=== PATIENT | female | born 1990 | race African-American/Black ===

== ENCOUNTER 2018-11-30 18:26 | Emergency (ER) | payer SELFPAY ==
[~2018-11-30] VITALS: Ht 185.4 cm; Wt 108.9 kg
[2018-11-30] MEDS ORDERED: NKM (18:36)
[2018-11-30 19:10] VITALS: BP 116/72
--- NOTE | 2018-11-30 19:12 | NUR ---
ED Nurse Note:pt. came with c/o cough and flu like symptoms for 5 days
--- NOTE | 2018-11-30 19:29 | Emergency Room Report ---
History of Present Illness General Chief Complaint: Flu Like Symptoms Source: Patient Present Illness HPI 27-year-old female presents to the emergency department complaining of persistent dry cough 5 days. Patient reports that she has taken Tessalon Perles and qron-fik-mthmeod cough and cold medications with no relief. Patient states that this is the second time she is being evaluated for her symptoms. painful cough that is 8/10 in severity. Patient denies fevers and chills she reports coughing is worse at night and is causing her to have difficulty sleeping. Patient states she is up-to-date with all her vaccinations including this years flu vaccination. Patient denies ill contacts or travel. She denies history of asthma, COPD or tobacco use/smoking. Denies sore throat, ear pain, high fevers, lethargy, neck pain/stiffness, irritability, photophobia dehydration, N/V/D. Denies Cp, Palpitations, LOC, AMS, seizures, paresthesias, or changes in Hearing or vision, no Sudden severe DUTTON. Denies hx of smoking, asthma or COPD. Allergies: Coded Allergies: No Known Allergies (Unverified , 11/30/18) Patient History Past Medical History: see triage record Past Surgical History: none Pertinent Family History: none Last Menstrual Period: currently on it Now: No : 0 Para: 0 Reviewed Nursing Documentation: PMH: Agreed; PSxH: Agreed Nursing Documentation-PMH Past Medical History: No Stated History Review of Systems All Other Systems: negative except mentioned in HPI Physical Exam Vital Signs Date Time Temp Pulse Resp B/P (MAP) Pulse Ox O2 Delivery O2 Flow Rate FiO2 11/30/18 18:32 98.2 76 18 116/72 97 Room Air Sp02 EP Interpretation: reviewed, normal General Appearance: no apparent distress, alert, GCS 15, non-toxic Head: normocephalic, atraumatic Eyes: bilateral eye normal inspection, bilateral eye PERRL ENT: hearing grossly normal, normal pharynx, normal voice Neck: full range of motion, no meningismus Respiratory: chest non-tender, lungs clear, normal breath sounds, no rhonchi, no respiratory distress, no accessory muscle use, speaking full sentences, wheezing - expiratory Cardiovascular #1: regular rate, rhythm Musculoskeletal: back normal, gait/station normal, normal range of motion, non- tender Neurologic: alert, oriented x3, responsive, motor strength/tone normal, sensory intact, speech normal, grossly normal Psychiatric: judgement/insight normal Skin: normal color, no rash, warm/dry, well hydrated Lymphatic: no adenopathy Medical Decision Making PA Attestation Dr. gandara is my supervising Physician whom patient management has been discussed with. Diagnostic Impression: Primary Impression: Bronchitis ER Course 27-year-old female presents to the emergency department complaining of persistent dry cough 5 days. Patient reports that she has taken Tessalon Perles and [id number]-[id number] cough and cold medications with no relief. Patient states that this is the second time she is being evaluated for her symptoms. painful cough that is 8/10 in severity. Patient denies fevers and chills she reports coughing is worse at night and is causing her to have difficulty sleeping. Patient states she is up-to-date with all her vaccinations including this years flu vaccination. Patient denies ill contacts or travel. She denies history of asthma, COPD or tobacco use/smoking. Denies sore throat, ear pain, high fevers, lethargy, neck pain/stiffness, irritability, photophobia dehydration, N/V/D. Denies Cp, Palpitations, LOC, AMS, seizures, paresthesias, or changes in Hearing or vision, no Sudden severe DUTTON. Denies hx of smoking, asthma or COPD. Ddx considered but are not limited to URI, pneumonia, PE, strep pharyngitis, meningitis. Vital signs: Pt.is afebrile VS are WNL H&PE are most consistent with bronchitis ORDERS: none required at this time, the diagnosis is clinical ED INTERVENTIONS: None required at this time. DISCHARGE: At this time pt. is stable for d/c to home. Will provide printed patient care instructions, and any necessary prescriptions. Care plan and follow up instructions have been discussed with the patient prior to discharge. Last Vital Signs Date Time Temp Pulse Resp B/P (MAP) Pulse Ox O2 Delivery O2 Flow Rate FiO2 11/30/18 19:10 98.2 80 18 116/72 97 Room Air Disposition: HOME, SELF-CARE Condition: Stable Scripts Prednisone* (PREDNISONE*) 20 Mg Tablet 40 MG ORAL DAILY for 5 Days, #10 TAB Prov: Jessy Zelaya 11/30/18 Albuterol Sulfate* (ALBUTEROL SULFATE MDI*) 8.5 Gm Hfa.aer.ad 2 PUFF INH Q6H, #1 INH 0 Refills Prov: Jessy Zelaya 11/30/18 Codeine/Promethazine Hcl* (PROMETHAZINE-CODEINE SYRUP*) 118 Ml Syrup 5 ML ORAL Q6H PRN for For Cough, #120 ML 0 Refills Prov: Jessy Zelaya 11/30/18 Departure Forms: Return to Work Return to Work Date: Dec 05, 2018 Work Restrictions: None Other Restrictions: May return Sooner if Symptoms have resolved. Return to Full Activity: Dec 05, 2018 Patient Instructions: Acute Bronchitis, [id number] Additional Instructions: Take medications as directed. Follow up with a Primary Care Provider in 3-5 days, even if your symptoms have resolved. --Please review list of primary care clinics, if you do not already have a primary care provider Return sooner to ED if new symptoms occur, or current symptoms become worse. Do not drink alcohol, drive, or operate heavy machinery while taking Cough Syrup as this may cause drowsiness. - Please note that this Emergency Department Report was dictated using [employer] sewing department technology software, occasionally this can lead to erroneous entry secondary to interpretation by the dictation equipment. Jessy Zelaya Nov 30, 2018 19:29
[2018-11-30] MEDS ORDERED: ALBUTEROL SULF8.5 GM INH (19:32)
[2018-11-30] MEDS ORDERED: PREDNISONE20 MG ORAL (19:32)
[2018-11-30] MEDS ORDERED: PROMETHAZINE-C118 M1 ORAL (19:32)
[2018-11-30 19:38] VITALS: BP 114/76
--- NOTE | 2018-11-30 19:38 | NUR ---
ER Nurse Note: Pt seen, treated, medically cleared for discharge by ERMD. Discharge instructions and prescriptions given with repeat verbalization by pt. Instructed pt to follow up with primary care physican within one week. Pt a&ox4, VSS, no signs of distress. ID removed. Pt left with steady gait with all belongings via own transportation.
== END 2018-11-30 19:38 | disposition home or self-care (01) ==
LOC: EMR 19:11
DX: J40 Bronchitis, not specified as acute or chronic (principal)
CPT/HCPCS: 99282; 99283